=== PATIENT | female | born 1960 | race Caucasian/White ===

== ENCOUNTER 2017-10-16 15:14 | Emergency (ER) | payer OTHER ==
[~2017-10-16] VITALS: Ht 152.4 cm; Wt 52.6 kg
[~2017-10-16 15:14] MED LIST: ADULT ASPIRIN81 MG PO; CIPRO500 MG PO; FLAGYL500 MG PO; ISOSORBIDE DINI20 MG PO; KETOROLAC TROME10 MG; LEXAPRO10 MG PO; LIPITOR40 MG PO; PROAIR HFA8.5 G1; XANAX0.25 MG PO; Z.0.AMBIEN10 MG PO; Z.0.ATENOLOL50 MG PO; Z.0.DULERA 100 MCG/1; Z.0.FLEXERIL10 MG PO; Z.0.ISOSORBIDE DINI3 PO; Z.0.LIPITOR20 MG PO; ZOLOFT50 MG PO
[2017-10-16] MEDS ORDERED: KETOROLAC TROMETHAMINE 60 MG/2 ML VIAL IM ONE (16:00)
[2017-10-16 18:21] VITALS: BP 130/70
[2017-10-16] MEDS ORDERED: LASIX20 MG PO (18:26)
[2017-10-16] MEDS ORDERED: ALBUTEROL0.63 MG/3 (18:28)
== END 2017-10-16 16:20 | disposition home or self-care (01) ==
LOC: FSED 15:14
DX: M25.511 Pain in right shoulder (principal); V44.1XXA Car passenger injured in collision with heavy transport vehicle or bus in nontraffic accident, initial encounter
CPT/HCPCS: 73030; 99283; J1885

== ENCOUNTER 2017-12-07 03:02 | Emergency (ER) | payer OTHER ==
[~2017-12-07] VITALS: Ht 152.4 cm; Wt 49.0 kg
[~2017-12-07 03:02] MED LIST changes: +ALBUTEROL0.63 MG/3; +LASIX20 MG PO
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
[2017-12-07 04:09] VITALS: BP 130/60
== END 2017-12-07 04:21 | disposition home or self-care (01) ==
LOC: FSED 03:02
DX: S92.302A Fracture of unspecified metatarsal bone(s), left foot, initial encounter for closed fracture (principal); W18.39XA Other fall on same level, initial encounter; Y92.008 Other place in unspecified non-institutional (private) residence as the place of occurrence of the external cause; F17.210 Nicotine dependence, cigarettes, uncomplicated
CPT/HCPCS: 99283

== ENCOUNTER → 2019-06-14 | Day surgery (SDC) | payer OTHER ==
[~2019-06-14] VITALS: Ht 152.4 cm; Wt 52.2 kg
[2019-06-14] VITALS (9 sets, daily range): BP systolic 116–136; BP diastolic 55–89
[~2019-06-14] MED LIST changes: +ATENOLOL50 MG; +FENTANYL CITRATE/PF 100MCG/2 ML INJ ONE; +FUROSEMIDE INJ 10 MG/ML 4 ML VIAL ONE; +HEPARIN SOD/SOD CHLORIDE 2,000 ML ONE; +HYDROCHLOROTHIA25 MG PO; +IOPAMIDOL 370 MG/ML 200 ML INFUS..BTL INJ ONE; +ISOSORBIDE MONO30 MG PO; +LIDOCAINE HCL 2% LOCAL 20 ML VIAL ONE; +LISINOPRIL40 MG; +MIDAZOLAM HCL 2 MG/2 ML VIAL ONE; +NITROGLYCERIN0.4 MG SL; +POTASSIUM CHLORIDE 20 MEQ TAB CR PO ONE; +SODIUM CHLORIDE 0.9% 1000ML 1,000 ML ONE
--- OUTSIDE RECORDS SUMMARY | 2019-06-14 05:22 | XMS REPORT ---
Author Author [facility] Address Unknown Phone Unavailable Care Team Providers Care Route Rider Name Role Phone Unavailable Unavailable Payers Payer Name Policy Type Policy Number Effective Date Expiration Date Problems This patient has no known problems. Allergies, Adverse Reactions, Alerts Allergy Name Allergy Type Status Severity Reaction(s) Onset Date Inactive Date Treating Clinician Comments No Known Allergies DA Active U 2018-09-09 00:00:00 No Known Allergies DA Active U 2018-04-13 00:00:00 No Known Allergies DA Active U 2018-03-13 00:00:00 No Known Allergies DA Active U 2010-08-24 00:00:00 Medications This patient has no known medications. Results Test Description Test Time Test Comments Text Results Atomic Results Result Comments SCR MAMM BILATERAL SHEFALI CAD DIGITAL 2019-04-29 13:49:03 - SCR MAMM BILATERAL SHEFALI CAD DIGITALBILATERAL DIGITAL SCREENING MAMMOGRAM 3D/2D WITH CAD: 04/29/2019CLINICAL: Asymptomatic. Digital breast tomosynthesis was performed in addition to routine CC and MLO views. Current mammographic images were evaluated by either a Veebox M-Vu or a [employer] ImageChecker CAD (computer aided detection system). Comparison is made to exams dated 10/27/2015 mammogram, 12/06 mammogram, and 12/28/2011 mammogram - [facility]-. There are scattered fibroglandular tissues in both breasts. No suspicious mass, architectural distortion, malignant type calcification, or lymph node abnormality detected. Breast architecture is stable compared to prior exams.IMPRESSION: NEGATIVEThere is no mammographic evidence of malignancy. Resume annual screening mammography in one year. Leonardo Mann M.D. ss/penrad:04/29/2019 13:49:03 Diathermy Equipment Repairer: Aileen Garcia FW, [facility]-FWletter sent: BIRADS 1-2 Normal Mammogram BI-RADS: 1 Negative BASIC METABOLIC PANEL 2019-04-09 13:27:00 SODIUM (test code=NA) 149 mmol/L 136-145 POTASSIUM (test code=K) 3.6 mmol/L 3.5-5.1 CHLORIDE (test code=CL) 116.0 mmol/L 98-107 CARBON DIOXIDE (test code=CO2) 22.0 mmol/L 21-32 ANION GAP (test code=GAP) 14.6 10-20 GLUCOSE (test code=GLU) 155 mg/dL 74-106 BLOOD UREA NITROGEN (test code=BUN) 6 mg/dL 7-18 GLOMERULAR FILTRATION RATE (test code=GFR) > 60 mL/min >=60 Estimated GFR by using Modified MDRD formula.Chronic kidney disease is defined as either kidney damageor GFR <60 mL/min/1.73 m2 for >3 months. CREATININE (test code=CREAT) 0.50 mg/dL 0.55-1.02 Note change in reference range due to change in reagent. BUN/CREATININE RATIO (test code=BUN/CREA) 12.2 10-20 CALCIUM (test code=CA) 7.5 mg/dL 8.5-10.1 1104 HEPATIC FUNCTION [id number] 13:27:00* Test Item Value Reference Range Comments TOTAL PROTEIN (test code=PROT) 5.8 gram/dL 6.4-8.2 ALBUMIN (test code=ALB) 2.8 g/dL 3.4-5.0 GLOBULIN (test code=GLOB) 3.0 gram/dL 2.7-4.2 ALBUMIN/GLOBULIN RATIO (test code=A/G) 0.9 0.75-1.50 BILIRUBIN TOTAL (test code=BILT) 0.30 mg/dL 0.0-1.0 BILIRUBIN DIRECT (test code=BILD) 0.05 mg/dL 0.0-0.20 SGOT/AST (test code=AST) 22 IUnit/L 15-37 SGPT/ALT (test code=ALT) 16 IUnit/L 12-78 ALKALINE PHOSPHATASE TOTAL (test code=ALKP) 130 IUnit/L 45-117 Note change in reference range due to change in reagent. 1103 [id number] 13:27:00* Test Item Value Reference Range Comments TROPONIN-I (test code=TROPI) 0.022 ng/mL 0-0.045 1103 [id number] 13:27:00* Test Item Value Reference Range Comments ACETAMINOPHEN (test code=ACET) < 10 mcg/mL 10-30 A RANGE OF 10-30 mcg/mL IS A THERAPEUTIC RANGE. TOXIC CONCENTRATIONS: >150 mcg/mL AT 4 HOURS AFTER INGESTION >=50 mcg/mL AT 12 HOURS AFTER INGESTION 1103 [id number] 13:27:00* Test Item Value Reference Range Comments SALICYLATE (test code=KAMRAN) 2.1 mg/dL 2.8-20.0 1103 [id number] 13:27:00* Test Item Value Reference Range Comments ALCOHOL (test code=ALC) 7 mg/dL 0.0-3.0 INTERPRETIVE DATA NOTE: POSITIVE SCREENING RESULTS SHOULD BE CONSIDERED PRESUMPTIVE.WHEN COLLECTED FOR MEDICAL PURPOSES ONLY. SPECIMEN WILL NOTBE COLLECTED BY CHAIN OF CUSTODY.IF A CONFIRMATION OF POSITIVE RESULTS IS DESIRED, ACONFIRMATION TEST MUST BE REQUESTED BY THE PHYSICIAN AT ANADDITIONAL CHARGE TO THE PATIENT. 1103 BASIC METABOLIC [id number] 13:16:00* Test Item Value Reference Range Comments SODIUM (test code=NA) 149 mmol/L 136-145 POTASSIUM (test code=K) 3.6 mmol/L 3.5-5.1 CHLORIDE (test code=CL) 116.0 mmol/L 98-107 CARBON DIOXIDE (test code=CO2) mmol/L 21-32 ANION GAP (test code=GAP) 10-20 GLUCOSE (test code=GLU) mg/dL 74-106 BLOOD UREA NITROGEN (test code=BUN) mg/dL 7-18 GLOMERULAR FILTRATION RATE (test code=GFR) mL/min >=60 CREATININE (test code=CREAT) mg/dL 0.55-1.02 BUN/CREATININE RATIO (test code=BUN/CREA) 10-20 CALCIUM (test code=CA) mg/dL 8.5-10.1 1104 HEPATIC FUNCTION [id number] 13:16:00* Test Item Value Reference Range Comments TOTAL PROTEIN (test code=PROT) gram/dL 6.4-8.2 ALBUMIN (test code=ALB) g/dL 3.4-5.0 GLOBULIN (test code=GLOB) gram/dL 2.7-4.2 ALBUMIN/GLOBULIN RATIO (test code=A/G) 0.75-1.50 BILIRUBIN TOTAL (test code=BILT) mg/dL 0.0-1.0 BILIRUBIN DIRECT (test code=BILD) mg/dL 0.0-0.20 SGOT/AST (test code=AST) IUnit/L 15-37 SGPT/ALT (test code=ALT) IUnit/L 12-78 ALKALINE PHOSPHATASE TOTAL (test code=ALKP) IUnit/L 45-117 1104 [id number] 13:16:00* Test Item Value Reference Range Comments TROPONIN-I (test code=TROPI) ng/mL 0-0.045 1104 [id number] 13:16:00* Test Item Value Reference Range Comments ACETAMINOPHEN (test code=ACET) mcg/mL 10-30 1104 [id number] 13:16:00* Test Item Value Reference Range Comments SALICYLATE (test code=KAMRAN) mg/dL 2.8-20.0 1104 [id number] 13:16:00* Test Item Value Reference Range Comments ALCOHOL (test code=ALC) mg/dL 0-3 1104 URINALYSIS [id number] 12:23:00* Test Item Value Reference Range Comments UA COLOR (test code=COLU) LIGHT YELLOW YELLOW UA APPEARANCE (test code=APPU) CLEAR CLEAR UA GLUCOSE DIPSTICK (test code=DGLUU) NEGATIVE mg/dL NEGATIVE UA BILIRUBIN DIPSTICK (test code=BILU) NEGATIVE NEGATIVE UA KETONE DIPSTICK (test code=KETU) NEGATIVE mg/dL NEGATIVE UA SPECIFIC GRAVITY (test code=SGU) <=1.005 1.001-1.035 UA BLOOD DIPSTICK (test code=ROSALIND) Negative NEGATIVE UA PH DIPSTICK (test code=CHELE) 6.0 5.0-8.0 UA PROTEIN DIPSTICK (test code=PROU) NEGATIVE mg/dL Neg-15 UA UROBILINIOGEN DIPSTICK (test code=URO) 0.0-0.2 (NORMAL) mg/dL 0.0-0.2 UA NITRITE DIPSTICK (test code=ERNESTO) NEGATIVE NEGATIVE UA LEUKOCYTE ESTERASE W REFLEX (test code=LEUUR) NEGATIVE NEGATIVE UA WBC (test code=WBCU) 0-5 per HPF 0-5 UA RBC (test code=RBCU) 0-3 per HPF 0-5 UA EPITHELIAL CELLS (test code=EPIU) Few (2-5/hpf) per HPF Few UA BACTERIA (test code=BACU) FEW per HPF NONE Urine Source? Clean CatchDRUGS OF ABUSE SCREEN [id number] 12:23:00* Test Item Value Reference Range Comments URN COCAINE (test code=COCAURN) NEGATIVE <300 ng/mL URN CANNABINOIDS (test code=CANNABURN) NEGATIVE <50 ng/mL URN AMPHETAMINE (test code=AMPHETURN) NEGATIVE <1000 ng/mL URN BARBITURATE (test code=BARBITURN) NEGATIVE <200 ng/mL URN BENZODIAZEPINE (test code=BENZOURN) POSITIVE <200 ng/mL This test provides only a preliminary test result. A morespecific alternate chemical method must be used in order toobtain a confirmed analytical result. Gas chromatography/mass spectrometry (GC/MS) is thepreferred confirmatory method. Other chemical confirmationmethods are available. Clinical consideration and professional judgment should be applied to any drug of abusetest result, particularly when preliminary positive resultsare used.Unconfirmed screening results must not be used fornon-medical purposes (e.g., employment testing, legaltesting). URN OPIATES (test code=OPIATURN) NEGATIVE <300 ng/mL URN PHENCYCLIDINE (PCP) (test code=PHENCURN) NEGATIVE <25 ng/mL URN METHADONE (test code=METHAURN) NEGATIVE <300 ng/mL Urine Source? Clean CatchCBC W/O [id number] 11:01:00* Test Item Value Reference Range Comments WHITE BLOOD CELL (test code=WBC) 4.6 K/mm3 4.5-12.5 RED BLOOD CELL (test code=RBC) 4.55 mill/mm3 3.7-5.2 HEMOGLOBIN (test code=HGB) 12.3 gram/dL 11.5-15.5 HEMATOCRIT (test code=HCT) 40.2 % 36.0-46.0 MEAN CELL VOLUME (test code=MCV) 88.4 fL 80-98 MEAN CELL HGB (test code=MCH) 27.0 picogram 27.0-33.0 MEAN CELL HGB CONCETRATION (test code=MCHC) 30.6 gram/dL 33.0-36.0 RED CELL DISTRIBUTION WIDTH (test code=RDW) 16.5 % 11.6-16.2 PLATELET COUNT (test code=PLT) 244 K/mm3 150-450 MEAN PLATELET VOLUME (test code=MPV) 12.3 fL 6.7-11.0 URINALYSIS [id number] 10:55:00* Test Item Value Reference Range Comments UA COLOR (test code=COLU) LIGHT YELLOW YELLOW UA APPEARANCE (test code=APPU) CLEAR CLEAR UA GLUCOSE DIPSTICK (test code=DGLUU) NEGATIVE mg/dL NEGATIVE UA BILIRUBIN DIPSTICK (test code=BILU) NEGATIVE NEGATIVE UA KETONE DIPSTICK (test code=KETU) NEGATIVE mg/dL NEGATIVE UA SPECIFIC GRAVITY (test code=SGU) <=1.005 1.001-1.035 UA BLOOD DIPSTICK (test code=ROSALIND) Negative NEGATIVE UA PH DIPSTICK (test code=CHELE) 6.0 5.0-8.0 UA PROTEIN DIPSTICK (test code=PROU) NEGATIVE mg/dL Neg-15 UA UROBILINIOGEN DIPSTICK (test code=URO) 0.0-0.2 (NORMAL) mg/dL 0.0-0.2 UA NITRITE DIPSTICK (test code=ERNESTO) NEGATIVE NEGATIVE UA LEUKOCYTE ESTERASE W REFLEX (test code=LEUUR) NEGATIVE NEGATIVE UA WBC (test code=WBCU) 0-5 per HPF 0-5 UA RBC (test code=RBCU) 0-3 per HPF 0-5 UA EPITHELIAL CELLS (test code=EPIU) Few (2-5/hpf) per HPF Few UA BACTERIA (test code=BACU) FEW per HPF NONE Urine Source? Clean CatchDRUGS OF ABUSE SCREEN [id number] 10:55:00* Test Item Value Reference Range Comments URN COCAINE (test code=COCAURN) <300 ng/mL URN CANNABINOIDS (test code=CANNABURN) <50 ng/mL URN AMPHETAMINE (test code=AMPHETURN) <1000 ng/mL URN BARBITURATE (test code=BARBITURN) <200 ng/mL URN BENZODIAZEPINE (test code=BENZOURN) <200 ng/mL URN OPIATES (test code=OPIATURN) <300 ng/mL URN PHENCYCLIDINE (PCP) (test code=PHENCURN) <25 ng/mL URN METHADONE (test code=METHAURN) <300 ng/mL Urine Source? Clean CatchCBC W/O [id number] 10:47:00* Test Item Value Reference Range Comments WHITE BLOOD CELL (test code=WBC) K/mm3 4.5-12.5 RED BLOOD CELL (test code=RBC) mill/mm3 3.7-5.2 HEMOGLOBIN (test code=HGB) 12.3 gram/dL 11.5-15.5 HEMATOCRIT (test code=HCT) 40.2 % 36.0-46.0 MEAN CELL VOLUME (test code=MCV) fL 80-98 MEAN CELL HGB (test code=MCH) picogram 27.0-33.0 MEAN CELL HGB CONCETRATION (test code=MCHC) gram/dL 33.0-36.0 RED CELL DISTRIBUTION WIDTH (test code=RDW) % 11.6-16.2 PLATELET COUNT (test code=PLT) K/mm3 150-450 MEAN PLATELET VOLUME (test code=MPV) fL 6.7-11.0 - CT HEAD/BRAIN W/O [id number] 10:26:00 Name: NATHAN ACOSTA [facility] : 1960 Age/S: 58 / F [address] [facility]: [id number] Loc: [place], [place] [address] Phys: Massimo Canales MD Acct: [id number] Dis Date: Status: REG ER PHONE #: [phone] Exam Date: 04/09/2019 0954 FAX #: [phone] Reason: CONFUSION EXAMS: CPT CODE: [id number] CT HEAD/BRAIN W/O CONT 85911 HISTORY: CONFUSION TECHNIQUE: Noncontrast 2.[address] of the head. Examination acquired within 24 hours of arrival. Automated exposure control for dose reduction. COMPARISON: Noncontrast CT brain March 13, 2018 FINDINGS: No lacerations or contusions of the scalp or facial soft tissues.. Calvarium and skull base are intact. No acute hemorrhage. No intracranial mass, mass effect, or midline shift. No effacement of the sulci or singh-white matter interface. Mildly decreased attenuation of the periventricular white matter suggests chronic m icrovascular ischemic changes. No hydrocephalus.. No extra-axial f luid collection. Visualized paranasal sinuses are clear. M iddle ear cavities are clear. Left mastoid air cells are partially opacifi ed. Right mastoid air cells are underpneumatized. Orbital contents are unr emarkable. IMPRESSION: No acute intra cranial process. Mild chronic microvascular ischemic changes involving t he white matter. 19 at 1026 Reported and signed by: Robby No MD CC: Andre Ellis Jr, MD; Massimo Canales MD Technologist:RT KARINA(R) CT CTDI: DLP: Trnscb Date/Time: 04/09/2019 (5916) t.SDR.RR31 Orig Print D/T: S: 04/09/2019 (9578) PAGE 1 Signed Report - CT CHEST [id number] 15:41:00 Name: NATHAN ACOSTA [facility] : 1960 Age/S: 58 / F [address] [facility] Unit #: [id number] Loc: [place] [address] Phys: Usman Keyes MD Acct: [id number] Dis Date: Status: ADM IN PHONE #: [phone] Exam Date: 09/10/2018 1536 FAX #: [phone] Reason: CP EXAMS: CPT CODE: [id number] CT CHEST W/CONTRAST [address] REASON FOR EXAM: CP EXAM ORDER DATE: 09/10/2018 11:43 AM Ordering M.DFaye: Usman Moses MD PROCEDURE: - CT CHEST W/CONTRAST FINDINGS: CT images of the chest were obtained with IV contrast. Reconstructed sagittal and coronal images of the chest were provided for interpretation. Dose modulation, iterative reconstruction, and/or weight based adjustment of the MA/KV was utilized to reduce the radiation dose to as low as reasonably achievable. Intravenous contrast: 100c of Omnipaque 370. The heart size is within normal limits. No evidence of pericardial effusion The thoracic aorta is unremarkable. No evidence of dissection or aneurysmal dilatation. No filling defect seen within the main or lobar pulmonary arteries to suggest pulmonary embolus. No evidence of mediastinal or hilar adenopathy. The lungs are clear. No evidence of pleural effusion IMPRESSION: Hyperinflated lungs suggestive of COPD at 1541 Reported and signed by: Jovanny Aguilar M.D. CC: Andre Ellis Jr, MD; Usman Keyes Technologist:Kalli Levin RT(R) CTDI: DLP: Trnscb Date/Time: 09/10/2018 (1541) [email or web address].VTL Orig Print D/T: S: 09/10/2018 (0244) CTDI: DLP: PAGE 1 Signed Report [id number] 10:20:00* Test Item Value Reference Range Comments TROPONIN-I (test code=TROPI) <0.015 ng/mL 0-0.045 COMMENTS TO SUPPORT SERVICES REP: COLLECT 3 HOURS AFTER PREVIOUS [id number] 07:43:00* Test Item Value Reference Range Comments TROPONIN-I (test code=TROPI) <0.015 ng/mL 0-0.045 COMMENTS TO SUPPORT SERVICES REP: COLLECT 3 HOURS AFTER PREVIOUS SAMPLEB-TYPE NATRIURETIC [id number] 23:48:00* Test Item Value Reference Range Comments B-TYPE NATRIURETIC PEPTIDE (test code=BNP) 430.54 pgram/mL 0-100 BASIC METABOLIC [id number] 23:19:00* Test Item Value Reference Range Comments SODIUM (test code=NA) 143 mmol/L 136-145 POTASSIUM (test code=K) 4.1 mmol/L 3.5-5.1 CHLORIDE (test code=CL) 112.0 mmol/L 98-107 CARBON DIOXIDE (test code=CO2) 24.0 mmol/L 21-32 ANION GAP (test code=GAP) 11.1 10-20 GLUCOSE (test code=GLU) 100 mg/dL 74-106 BLOOD UREA NITROGEN (test code=BUN) 15 mg/dL 7-18 GLOMERULAR FILTRATION RATE (test code=GFR) > 60 mL/min >=60 Estimated GFR by using Modified MDRD formula.Chronic kidney disease is defined as either kidney damageor GFR <60 mL/min/1.73 m2 for >3 months. CREATININE (test code=CREAT) 0.60 mg/dL 0.55-1.02 Note change in reference range due to change in reagent. BUN/CREATININE RATIO (test code=BUN/CREA) 24.9 10-20 CALCIUM (test code=CA) 8.1 mg/dL 8.5-10.1 [id number] 23:19:00* Test Item Value Reference Range Comments TROPONIN-I (test code=TROPI) <0.015 ng/mL 0-0.045 BASIC METABOLIC [id number] 23:07:00* Test Item Value Reference Range Comments SODIUM (test code=NA) 143 mmol/L 136-145 POTASSIUM (test code=K) 4.1 mmol/L 3.5-5.1 CHLORIDE (test code=CL) 112.0 mmol/L 98-107 CARBON DIOXIDE (test code=CO2) mmol/L 21-32 ANION GAP (test code=GAP) 10-20 GLUCOSE (test code=GLU) mg/dL 74-106 BLOOD UREA NITROGEN (test code=BUN) mg/dL 7-18 GLOMERULAR FILTRATION RATE (test code=GFR) mL/min >=60 CREATININE (test code=CREAT) mg/dL 0.55-1.02 BUN/CREATININE RATIO (test code=BUN/CREA) 10-20 CALCIUM (test code=CA) mg/dL 8.5-10.1 [id number] 23:07:00* Test Item Value Reference Range Comments TROPONIN-I (test code=TROPI) ng/mL 0-0.045 CBC W/O [id number] 22:55:00* Test Item Value Reference Range Comments WHITE BLOOD CELL (test code=WBC) 7.8 K/mm3 4.5-12.5 RED BLOOD CELL (test code=RBC) 4.20 mill/mm3 3.7-5.2 HEMOGLOBIN (test code=HGB) 12.4 gram/dL 11.5-15.5 HEMATOCRIT (test code=HCT) 38.8 % 36.0-46.0 MEAN CELL VOLUME (test code=MCV) 92.4 fL 80-98 MEAN CELL HGB (test code=MCH) 29.5 picogram 27.0-33.0 MEAN CELL HGB CONCETRATION (test code=MCHC) 32.0 gram/dL 33.0-36.0 RED CELL DISTRIBUTION WIDTH (test code=RDW) 15.4 % 11.6-16.2 PLATELET COUNT (test code=PLT) 268 K/mm3 150-450 MEAN PLATELET VOLUME (test code=MPV) 11.2 fL 6.7-11.0 CBC W/O [id number] 22:53:00* Test Item Value Reference Range Comments WHITE BLOOD CELL (test code=WBC) K/mm3 4.5-12.5 RED BLOOD CELL (test code=RBC) mill/mm3 3.7-5.2 HEMOGLOBIN (test code=HGB) 12.4 gram/dL 11.5-15.5 HEMATOCRIT (test code=HCT) 38.8 % 36.0-46.0 MEAN CELL VOLUME (test code=MCV) fL 80-98 MEAN CELL HGB (test code=MCH) picogram 27.0-33.0 MEAN CELL HGB CONCETRATION (test code=MCHC) gram/dL 33.0-36.0 RED CELL DISTRIBUTION WIDTH (test code=RDW) % 11.6-16.2 PLATELET COUNT (test code=PLT) K/mm3 150-450 MEAN PLATELET VOLUME (test code=MPV) fL 6.7-11.0 - XR CHEST 1 [id number] 22:45:00 FAX: Fariha Brody [phone] [place]: B St: PRE FAX: Andre Tse Jr [phone] Name: NATHAN ACOSTA [facility] : 1960 Age/S: 58/F [address] Unit #: [id number] Loc: [place] [address] Phys: Fariha Coyne MD Acct: [id number] Dis Date: Status: PRE ER PHONE #: [phone] Exam Date: 09/09/20182242 FAX #: [phone] Reason: CHEST PAIN EXAMS: CPT CODE: [id number] XR CHEST 1 V [id number] REASON FOR EXAM: CHEST PAIN EXAM ORDER DATE: 09/09/2018 10:10 PM Ordering MSonya: Fariha Coyne MD PROCEDURE: - XR CHEST 1 V COMPARISON: 03/13/2018 FINDINGS: Portable AP frontal view of the chest obtained at 10:42 PM shows clear lungs without evidence of consolidation. There is no evidence of effusion. The heart size is within normal limits. Pulmonary vasculatures are unremarkable. IMPRESSION: No active disease. E lectronically Signed by Dionne Aguilar on 09/09/2018 at 1396 Reported and signed by: Jovanny Aguilar M.D. CC: Tez Coyne MD; Andre Ellis Jr, MD Technologist: Carole Pollard Trnscrd Date/Time/By: 09/09/2018 ([id number]) : By: Nishant HUNTVTMyrna Orig Print D/T: S: 09/09/2018 (0221) ROSA LICEA 1 Signed Report
[2019-06-14 07:45] LABS: BASOPHILS # (AUTO) 0.1 (0.0-0.1); BASOPHILS % 1.4 % (0.0-1.0); EOSINOPHILS # (AUTO) 0.5 (0.0-0.4); EOSINOPHILS % 11.1 % (0.0-6.0); HEMATOCRIT 34.1 % (34.2-44.1); HEMOGLOBIN 10.8 g/dL (12.0-16.0); LYMPHOCYTES # (AUTO) 1.8 (1.0-3.2); LYMPHOCYTES % 42.5 % (18.0-39.1); MEAN CORPUSCULAR HEMOGLOBIN 26.4 pg (28-32); MEAN CORPUSCULAR HGB CONC 31.7 g/dL (31-35); MEAN CORPUSCULAR VOLUME 83.4 fL (81-99); MONOCYTES # (AUTO) 0.4 (0.2-0.8); MONOCYTES % 10.1 % (4.4-11.3); NEUTROPHILS # (AUTO) 1.5 (2.1-6.9); NEUTROPHILS % 34.9 % (38.7-80.0); PLATELET COUNT 321 x10e3/uL (140-360); RED BLOOD COUNT 4.09 x10e6/uL (3.6-5.1); RED CELL DISTRIBUTION WIDTH 16.7 % (11.7-14.4)
[2019-06-14 08:05] LABS: ALANINE AMINOTRANSFERASE 14 IU/L (0-55); ALBUMIN 3.1 g/dL (3.5-5.0); ALBUMIN/GLOBULIN RATIO 1.1 (0.8-2.0); ALKALINE PHOSPHATASE 130 IU/L (40-150); ANION GAP 12.7 mmol/L (8-16); BLOOD UREA NITROGEN 7 mg/dL (7-26); BUN/CREATININE RATIO 11 (6-25); CALCIUM 8.9 mg/dL (8.4-10.2); CARBON DIOXIDE 23 mmol/L (22-29); CHLORIDE 106 mmol/L (98-107); CREATININE, SERUM 0.63 mg/dL (0.57-1.11); EST GLOMERULAR FILTRATION RATE > 60 ML/MIN (60-); GLUCOSE 97 mg/dL (74-118); POTASSIUM 3.7 mmol/L (3.5-5.1); SODIUM 138 mmol/L (136-145)
--- NOTE | 2019-06-14 12:50 | Operative Report ---
DATE OF PROCEDURE: 06/14/2019 SURGEON: Wade Rowe MD INDICATIONS: 1. Hgegn-[id number] systolic congestive heart failure. 2. Coronary artery disease. PROCEDURE: Left heart catheterization. ANESTHESIA: Versed, fentanyl, and lidocaine. COMPLICATIONS: None. TECHNIQUE: The right groin was draped and prepped in the usual fashion. The area was anesthetized with lidocaine. Standard Seldinger technique was used to place a 6-[place] sheath into the right femoral artery without difficulty. A JL4 catheter was used to selectively engage the left coronary artery. A 3DRC catheter was used to selectively engage the right coronary artery. A pigtail catheter was used to perform a left ventriculogram. There were no complications. Results as follows: 1. There is a normal left main trunk. 2. There is a large left anterior descending artery, which gave rise to a medium-sized diagonal branch. There was mild nonobstructive disease in the left anterior descending artery and diagonal branch. 3. There was a medium-sized AV circumflex artery, which gave rise to a large bifurcating obtuse marginal branch, was a patent stent in the midportion of the AV circumflex artery. There was some mild nonobstructive disease. 4. There was a large dominant right coronary artery, which was 100% occluded at the site of proximal stent placement, which filled briskly by collaterals. 5. There was severe global left ventricular dysfunction with an ejection fraction of 25%. CONCLUSION: The patient has 100% occlusion of the right coronary artery proximally, which fills briskly by collaterals. The patient also has severe left ventricular dysfunction with an ejection fraction of 25%. Wade Rowe MD [facility] /[id number] cc: Andre Ellis MD
== END | disposition home or self-care (01) ==
LOC: CATH LAB 05:18
PROVIDERS: ATTEND Internal Medicine Cardiovascular Disease
DX: I25.110 Atherosclerotic heart disease of native coronary artery with unstable angina pectoris (principal); Z01.810 Encounter for preprocedural cardiovascular examination; Z01.811 Encounter for preprocedural respiratory examination; I50.22 Chronic systolic (congestive) heart failure; I25.2 Old myocardial infarction; Z95.5 Presence of coronary angioplasty implant and graft; I11.0 Hypertensive heart disease with heart failure; E78.00 Pure hypercholesterolemia, unspecified; F32.9 Major depressive disorder, single episode, unspecified; F41.9 Anxiety disorder, unspecified; J44.9 Chronic obstructive pulmonary disease, unspecified; Z90.49 Acquired absence of other specified parts of digestive tract; Z82.49 Family history of ischemic heart disease and other diseases of the circulatory system; Z82.3 Family history of stroke
CPT/HCPCS: 36415; 80053; 85025; 93458; C1769; J1940; J2001; J2250; J3010; J7030; Q9967; 99152; 99153